=== PATIENT | female | born 2000 | race Caucasian/White ===

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

== ENCOUNTER 2018-10-19 12:09 | Emergency (ER) ==
[2018-10-19 12:16] VITALS: BP 134/91; TEMP 98.6; BMI 18.1
[2018-10-19] MEDS ORDERED: DECADRON 4 MG/ML SDV IM STA (12:58)
[2018-10-19] MEDS ORDERED: DUONEB NEB STA (13:21)
[2018-10-19 13:22] LABS: URINE PREGNANCY TEST NEGATIVE (NEGATIVE)
--- NOTE | 2018-10-19 13:42 | DI ---
EXAM: Two views of the chest. History: Cough. Findings: Heart size is normal. No focal consolidation. No appreciable pleural fluid and no pneumo thorax. No acute osseous abnormalities. Impression: No acute cardiopulmonary process
--- NOTE | 2018-10-19 14:08 | ED.PDOC ---
General ED Provider: Dr. JAISON SERRANO Chief Complaint: Sore Throat Stated Complaint: flu like symptoms Time Seen by Physician: 12:12 (seen with nursing staff at all times ) Mode of Arrival: Walk-In Information Source: Patient Exam Limitations: No limitations Primary Care Provider: ZAKIA KAUR Nursing and Triage Documentation Reviewed and Agree: Yes Does patient meet sepsis criteria?: No System Inflammatory Response Syndrome: Not Applicable Sepsis Protocol: For patient's 13 years and over: Temp is 96.8 and below OR 101 and greater Pulse >90 BPM Resp >20/minute Acutely Altered Mental Status Are patient's symptoms suggestive of a new infection, such as: -Pneumonia -Skin, Soft Tissue -Endocarditis -UTI -Bone, Joint Infection -Implantable Device -Acute Abdominal Infection -Wound Infection -Meningitis -Blood Stream Catheter Infection -Unknown EENT Complaint Exam - Throat Complaint/Exam Symptoms Are: Still present Timimg: Intermittent Initial Severity: Mild Current Severity: Mild Aggravating: Reports: None, Eating Alleviating: Reports: None Associated Signs and Symptoms: Reports: Chills, Cough, Nasal congestion. Denies : Fever, Dysphagia, Drooling, Foreign body sensation, Wheezing, Hoarseness, Sinus discomfort, Difficulty breathing, Lethargy, Irritability, Decreased activity, Vomiting, Diarrhea, Decreased hearing, Ear drainage Uvula Midline: Yes Breanna-tonsillar Fluctuence: No Scarlatinaform Rash Present: No Lesions: Absent: Lip, Gums, Buccal Mucosa, Pharynx Exanthem: Absent: Lip, Gums, Tongue, Buccal Mucosa, Pharynx Stridor Present: No Sinus Tenderness Present: No Tonsillar Hypertrophy Present: No Tonsillar Exudate Present: No Breanna-tonsillar Swelling Present: No Adenopathy Present: No Splenomegaly Present: No Differential Diagnoses: Pharyngitis, URI Review of Systems - Review Of Systems Constitutional: Reports: Chills, Malaise Eyes: Reports: No symptoms Ears, Nose, Mouth, Throat: Reports: Nose discharge, Throat pain Respiratory: Reports: Cough Cardiac: Reports: No symptoms GI: Reports: No symptoms : Reports: No symptoms Musculoskeletal: Reports: No symptoms Skin: Reports: No symptoms Neurological: Reports: No symptoms Endocrine: Reports: No symptoms Hematologic/Lymphatic: Reports: No symptoms All Other Systems: Reviewed and Negative Past Medical History - Past Medical History Previously Healthy: Yes Endocrine: Reports: None Cardiovascular: Reports: None Respiratory: Reports: None Hematological: Reports: None Gastrointestinal: Reports: None Genitourinary: Reports: None Neuro/Psych: Reports: None Musculoskeletal: Reports: None Cancer: Reports: None Last Menstrual Period: jul 23--had - Surgical History General Surgical History: Reports: Tonsillectomy, Orthopedic (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) - Family History Family History: Reports: Unknown (no one else ill) - Social History Smoking Status: Current every day smoker, Light tobacco smoker Hx Substance Use: No Alcohol Screening: Occasionally Physical Exam - Physical Exam Appearance: Well-appearing, No pain distress, Well-nourished Eyes: TALHA, EOMI, Conjunctiva clear ENT: Erythema Respiratory: Airway patent, Breath sounds clear, Breath sounds equal, Respirations nonlabored Cardiovascular: RRR, Pulses normal, No rub, No murmur GI/: Soft, Nontender, No masses, Bowel sounds normal, No Organomegaly Musculoskeletal: Normal strength, ROM intact, No edema, No calf tenderness Skin: Warm, Dry, Normal color Neurological: Sensation intact, Motor intact, Reflexes intact, Cranial nerves intact, Alert, Oriented Psychiatric: Affect appropriate, Mood appropriate Critical Care Note - Critical Care Note Total Time (mins): 0 Course - Course Orders, Labs, Meds: Lab Review 10/19/18 10/19/18 10/19/18 13:10 13:10 13:12 Urine Test Negative Influ A Molecular Assay Negative by naat Influ B Molecular Assay Negative by naat RSV Antigen Negative by naat Orders Category Date Time Status NEBULIZER TREATMENT Stat CARDIO 10/19/18 13:21 Completed FLU A/B MOLECULAR Stat LAB 10/19/18 13:10 Completed MOLECULAR GROUP A STREP Stat LAB 10/19/18 13:10 Completed RSV Stat LAB 10/19/18 13:10 Completed URINE Stat LAB 10/19/18 13:12 Completed Dexamethasone 4 mg/ml Inj [Decadron 4 mg/ml Sdv] MEDS 10/19/18 12:58 Discontinued 4 mg IM ONCE STA Ipratropium/Albuterol Neb [Duoneb] MEDS 10/19/18 13:21 Discontinued 1 vial NEB ONCE STA CHEST, 2 VIEWS PA & LAT Stat RADS 10/19/18 13:00 Completed Medications Discontinued Medications Generic Name Dose Route Start Last Admin Trade Name Freq PRN Reason Stop Dose Admin Albuterol/Ipratropium 1 vial 10/19/18 13:21 10/19/18 13:42 Duoneb NEB 10/19/18 13:22 1 vial ONCE STA Administration Dexamethasone Sodium Phosphate 4 mg 10/19/18 12:58 10/19/18 13:18 Decadron 4 Mg/Ml Sdv IM 10/19/18 12:59 4 mg ONCE STA Administration Vital Signs: Temp Pulse Resp BP Pulse Ox 10/19/18 12:10 98.6 F 100 H 20 134/91 H 99 Departure - Departure Time of Disposition: 14:06 Disposition: HOME SELF-CARE Discharge Problem: Sore throat symptom Pharyngitis Qualifiers: Pharyngitis/tonsillitis etiology: unspecified etiology Qualified Code(s): J02.9 - Acute pharyngitis, unspecified Instructions: Pharyngitis (ED) Condition: Good Pt referred to PMD for follow-up: Yes IPMP verified?: No Prescriptions: Amoxicillin 500 mg PO Q8HR #21 tablet Prednisone 10 mg PO DAILYWM #7 tablet Allergies/Adverse Reactions: Allergies No Known Allergies Allergy (Verified 10/19/18 12:16) Home Medications: Ambulatory Orders Amoxicillin 500 mg PO Q8HR #21 tablet 10/19/18 Prednisone 10 mg PO DAILYWM #7 tablet 10/19/18
== END 2018-10-19 14:21 | disposition home or self-care (01) ==
LOC: ED 12:09
DX: J02.9 Acute pharyngitis, unspecified (principal); F17.210 Nicotine dependence, cigarettes, uncomplicated
CPT/HCPCS: 81025; 87502; 87651; 87801; 94640; 96372; 99283